=== PATIENT | male | born 1980 | race Caucasian/White ===

== ENCOUNTER 2020-04-22 21:29 | Emergency (ER) | payer OTHER ==
[~2020-04-22] VITALS: Ht 175.3 cm; Wt 79.4 kg
[~2020-04-22 21:29] MED LIST: ASCORBIC ACID250 MG PO; COZAAR50 MG PO; FERROUS GLUCON325 M1 PO; FOLIC ACID1 MG PO; GLIPIZIDE XL5 MG PO; HYDROCHLOROTHIA25 MG PO; METFORMIN HCL500 MG PO; RANITIDINE HCL150 MG PO; SIMVASTATIN20 MG PO; TERAZOSIN HCL2 MG PO; WARFARIN SODIUM5 MG PO
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
[2020-04-22] MEDS ORDERED: XANAX XR1 MG PO (21:38)
[2020-04-22] MEDS ORDERED: PROZAC40 MG PO (21:38)
== END 2020-04-22 23:02 | disposition home or self-care (01) ==
LOC: ED 21:29
DX: S20.211A Contusion of right front wall of thorax, initial encounter (principal); F41.9 Anxiety disorder, unspecified; F17.200 Nicotine dependence, unspecified, uncomplicated; Z79.899 Other long term (current) drug therapy; V47.5XXA Car driver injured in collision with fixed or stationary object in traffic accident, initial encounter
CPT/HCPCS: 71100; 99283-25

== ENCOUNTER 2020-11-21 18:18 | Emergency (ER) | payer OTHER ==
[~2020-11-21] VITALS: Ht 175.3 cm; Wt 79.4 kg
[~2020-11-21 18:18] MED LIST changes: +PROZAC40 MG PO; +XANAX XR1 MG PO
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
[2020-11-21] MEDS ORDERED: XANAX0.5 MG PO (20:32)
== END 2020-11-21 20:57 | disposition home or self-care (01) ==
LOC: ED 18:18
DX: F19.239 Other psychoactive substance dependence with withdrawal, unspecified (principal); F17.200 Nicotine dependence, unspecified, uncomplicated; Z79.899 Other long term (current) drug therapy
CPT/HCPCS: 99283

== ENCOUNTER 2023-12-10 09:22 | Emergency (ER) | payer OTHER ==
[~2023-12-10] VITALS: Ht 175.3 cm; Wt 68.7 kg
[~2023-12-10 09:22] MED LIST changes: +OMEPRAZOLE20 MG PO; +XANAX0.5 MG PO
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
[2023-12-10] MEDS ORDERED: ondansetron HCL 4 MG/2 ML VIAL IV ONE (11:00)
[2023-12-10] MEDS ORDERED: SODIUM CHLORIDE 0.9% 1,000 ML IV PRN ×2 (11:00→11:45)
[2023-12-10 11:03] LABS: BASOPHILS 1.5 % (0-2); EOSINOPHILS 0.3 % (0-6); HEMATOCRIT 46.5 % (35.0-50.0); HEMOGLOBIN 15.8 g/dL (12.0-18.0); LYMPHOCYTES 22.9 % (24-44); MCH 31.4 (27-36); MCV 92.3 fl (81-99); MONOCYTES 8.7 % (0-12); NEUTROPHILS 66.6 % (39-80); PLATELET COUNT 202 K/uL (140-440); RBC 5.04 M/ul (4.3-5.7); RDW 13.4 (10.5-15.0)
[2023-12-10 11:17] LABS: ALBUMIN 3.8 g/dL (3.4-5.0); ALBUMIN/GLOBULIN RATIO 0.95 (1.1-2.4); ANION GAP 15.2 (7-21); BILIRUBIN, TOTAL 0.2 ng/dL (0.2-1.0); CALCIUM 9.2 mg/dL (8.5-10.1); CREATININE, SERUM 0.8 mg/dL (0.70-1.30); MAGNESIUM 1.9 mg/dL (1.8-2.4); POTASSIUM 4.2 mmol/L (3.5-5.1); PROTEIN, TOTAL 7.8 g/dL (6.4-8.2)
[2023-12-10 11:18] LABS: ALCOHOL, MEDICAL 222 ng/dL (<3)
[2023-12-10] MEDS ORDERED: droPERidol 5 MG/2 ML VIAL IV ONE (11:45)
[2023-12-10 12:11] LABS: BILIRUBIN, URINE NEGATIVE (negative); BLOOD/HGB, URINE SMALL (Negative); KETONE, URINE NEGATIVE (Negative); LEUK ESTERASE, URINE NEGATIVE (negative); NITRITE, URINE NEGATIVE (negative)
[2023-12-10 12:26] LABS: EPITHELIAL CELLS, URINE 0 /lpf (0-1+); WHITE BLOOD CELLS, URINE 0-1 /HPF (0-5)
[2023-12-10 12:29] LABS: REFLEX CULTURE, URINE No (No)
[2023-12-10] MEDS ORDERED: CHLORDIAZEPOXID25 MG PO (13:36)
[2023-12-10] MEDS ORDERED: CHLORDIAZEPOXIDE 25 MG CAP PO ONE (13:45)
== END 2023-12-10 13:50 | disposition home or self-care (01) ==
LOC: ED 09:22
PROVIDERS: Emergency Medicine
DX: K29.20 Alcoholic gastritis without bleeding (principal); F10.239 Alcohol dependence with withdrawal, unspecified; F41.9 Anxiety disorder, unspecified; F17.200 Nicotine dependence, unspecified, uncomplicated; Y90.7 Blood alcohol level of 200-239 mg/100 ml; Z79.899 Other long term (current) drug therapy
CPT/HCPCS: 36415; 80053; 81001; 83690; 83735; 85025; 96361; 96374; 96375; 99284-25; G0480; J1790; J2405; J7030

== ENCOUNTER 2024-04-19 20:21 | Emergency (ER) | payer OTHER ==
[~2024-04-19] VITALS: Ht 175.3 cm; Wt 75.0 kg
--- OUTSIDE RECORDS SUMMARY | ~2024-04-19 | XMS | Continuity of Care Document ---
Demographics + + + | Address | [address] | | | [place] [address] | + + + | Preferred Language | Unknown | + + + | Marital Status | Unknown | + + + | Zoroastrian Affiliation | Unknown | + + + | Race | White | + + + | Ethnic Group | or | + + + Author + + + | Author | [facility] | + + + | Organization | [facility] | + + + | Address | [address] | | | [place] [address] | + + + | Phone | | + + + Care Team Providers + + + + | Care Cylinder Dyer Name | Role | Phone | + + + + Unavailable | Unavailable | + + + + Allergies No information. Encounters No information. Functional Status No information. Immunizations No information. Medications No information. 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) | [facility] | | | drug therapy | | + + + + | 2024-03-11 14:20:28 | Anxiety disorder, | [facility] | | | unspecified | | + + + + | 2024-03-12 11:35:32 | Anxiety disorder, | [facility] | | | unspecified | | + + + + | 2024-03-13 11:18:55 | Generalized anxiety | [facility] | | | disorder | | + + + + | 2024-03-13 11:18:55 | Contusion of unspecified | [facility] | | | part of head, initial | | | | encounter | | + + + + | 2024-03-16 08:33:08 | Panic Attack | [facility] | + + + + | 2024-03-16 09:44:15 | Anxiety disorder, | [facility] | | | unspecified | | + + + + | 2024-03-16 10:22:41 | Anxiety disorder, | [facility] | | | unspecified | | + + + + | 2024-03-30 11:38:40 | Weakness - Generalized | [facility] | + + + + | 2024-03-30 11:46:52 | Generalized anxiety | [facility] | | | disorder | | + + + + Procedures No information. Results/Labs No information. Social History +--------+ + + | date | description | facility | +--------+ + + Vital Signs No information."
[~2024-04-19 20:21] MED LIST changes: +CHLORDIAZEPOXID25 MG PO; +CLONIDINE HCL0.2 MG PO; +GABAPENTIN300 MG PO; +HYDROXYZINE HCL25 MG PO; +XANAX1 MG PO
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
[2024-04-19] MEDS ORDERED: FLUOXETINE HCL20 MG PO (20:32)
[2024-04-19] MEDS ORDERED: QUETIAPINE FUMARATE 100 MG TAB PO ONE (20:45)
[2024-04-19 20:49] LABS: BASOPHILS 1.3 % (0-2); EOSINOPHILS 0.4 % (0-6); HEMATOCRIT 40.9 % (35.0-50.0); LYMPHOCYTES 31.2 % (24-44); MCH 31.1 (27-36); MCHC 34.2 g/dl (30-36); MCV 91.1 fl (81-99); MONOCYTES 9.5 % (0-12); NEUTROPHILS 57.6 % (39-80); PLATELET COUNT 252 K/uL (140-440); RBC 4.49 M/ul (4.3-5.7); RDW 15.1 (10.5-15.0)
[2024-04-19 20:56] LABS: BILIRUBIN, URINE NEGATIVE (negative); BLOOD/HGB, URINE TRACE-I (Negative); KETONE, URINE NEGATIVE (Negative); LEUK ESTERASE, URINE NEGATIVE (negative); NITRITE, URINE NEGATIVE (negative); PH, URINE 6.5 (5-7)
[2024-04-19 21:01] LABS: ALBUMIN 3.9 g/dL (3.4-5.0); ALBUMIN/GLOBULIN RATIO 1.03 (1.1-2.4); ANION GAP 15.8 (7-21); BILIRUBIN, TOTAL 0.2 ng/dL (0.2-1.0); BUN/CREATININE RATIO 16.32 (6.0-28.6); CALCIUM 8.5 mg/dL (8.5-10.1); CREATININE, SERUM 0.98 mg/dL (0.70-1.30); POTASSIUM 3.8 mmol/L (3.5-5.1); PROTEIN, TOTAL 7.7 g/dL (6.4-8.2)
[2024-04-19 21:01] LABS: EPITHELIAL CELLS, URINE SQUAMOUS 1+ /lpf (0-1+)
[2024-04-19 21:02] LABS: BACTERIA, URINE RARE /hpf (negative); CASTS, URINE NONE SEEN \\lpf; CRYSTALS, URINE NONE SEEN (0-1+); REFLEX CULTURE, URINE No (No); WHITE BLOOD CELLS, URINE 0-1 /HPF (0-5)
[2024-04-19 21:12] LABS: AMPHETAMINES, URINE NEGATIVE (NEGATIVE); BARBITURATES, URINE NEGATIVE (NEGATIVE); BENZODIAZEPINE, URINE NEGATIVE (NEGATIVE); BUPRENORPHINE, URINE NEGATIVE (NEGATIVE); CANNABINOID, URINE NEGATIVE (NEGATIVE); COCAINE, URINE NEGATIVE (NEGATIVE); ECSTASY, URINE NEGATIVE (NEGATIVE); FENTANYL, URINE NEGATIVE (NEGATIVE); METHADONE, URINE NEGATIVE (NEGATIVE); OPIATES, URINE NEGATIVE (NEGATIVE); OXYCODONE, URINE NEGATIVE (NEGATIVE); PHENCYCLIDINE, URINE NEGATIVE (NEGATIVE)
[2024-04-19] MEDS ORDERED: SEROQUEL50 MG PO (21:45)
[2024-04-19 21:54] VITALS: BP 138/96
[2024-04-20] MEDS ORDERED: OMEPRAZOLE20 MG PO (04:01)
[2024-04-20] MEDS ORDERED: CARAFATE1 GM PO (04:40)
--- NOTE | 2024-04-20 12:34 | EKG ---
[facility] [address] [facility] [place] [address] Signed Normal sinus rhythm Normal ECG When compared with ECG of 27-OCT-2023 21:16, Vent. rate has decreased BY [address] no longer depressed in Anterior leads Nonspecific T wave abnormality no longer evident in Lateral leads Confirmed by BELEM LUCAS MD ([id number]) on 04/20/2024 12:33:49 PM Electronically Signed By: BELEM LUCAS 04/20/24 1234 PATIENT NAME: DELICIA CADET ELIAN Electrocardiogram DATE OF : 78 PHYSICIAN: BELEM LUCAS REPORT #: [id number] REPORT IS CONFIDENTIAL AND NOT TO BE RELEASED WITHOUT AUTHORIZATION
== END 2024-04-19 21:54 | disposition home or self-care (01) ==
LOC: ED 20:21
PROVIDERS: Internal Medicine
DX: F41.0 Panic disorder [episodic paroxysmal anxiety] (principal); F10.90 Alcohol use, unspecified, uncomplicated; F17.200 Nicotine dependence, unspecified, uncomplicated; Y90.6 Blood alcohol level of 120-199 mg/100 ml
CPT/HCPCS: 36415; 80053; 80307; 81001; 83735; 84484; 85025; 93005; 93010; A9270; G0480

== ENCOUNTER 2024-04-20 02:55 | Emergency (ER) | payer OTHER ==
[~2024-04-20] VITALS: Ht 177.8 cm; Wt 75.0 kg
--- OUTSIDE RECORDS SUMMARY | ~2024-04-20 | XMS | Continuity of Care Document ---
Demographics + + + | Address | [address] | | | [place] [address] | + + + | Preferred Language | Unknown | + + + | Marital Status | Unknown | + + + | Hindu Affiliation | Unknown | + + + | Race | White | + + + | Ethnic Group | or | + + + Author + + + | Author | [facility] | + + + | Organization | [facility] | + + + | Address | [address] | | | [place] [address] | + + + | Phone | | + + + Care Team Providers + + + + | Care Cinder Crew Worker Name | Role | Phone | + + + + Unavailable | Unavailable | + + + + Allergies No information. Encounters No information. Functional Status No information. Immunizations No information. Medications No information. Problems + + + + | date | description | facility | + + + + | 2024-03-02 21:28:03 | Other long term care administrator (current) | [facility] | | | drug [...]
[~2024-04-20 02:55] MED LIST changes: +FLUOXETINE HCL20 MG PO; +SEROQUEL50 MG PO
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
[2024-04-20] MEDS ORDERED: LIDOCAINE & ANTACID 35 ML BTL PO ONE (03:15)
[2024-04-20] MEDS ORDERED: FAMOTIDINE 20 MG/ 2 ML VIAL IV ONE (03:15)
[2024-04-20] MEDS ORDERED: ACETAMINOPHEN 500 MG TAB PO ONE (03:15)
[2024-04-20 03:23] LABS: BASOPHILS 0.8 % (0-2); EOSINOPHILS 0.5 % (0-6); HEMATOCRIT 39.4 % (35.0-50.0); HEMOGLOBIN 13.5 g/dL (12.0-18.0); LYMPHOCYTES 19.7 % (24-44); MCH 31.2 (27-36); MCHC 34.2 g/dl (30-36); MCV 91.2 fl (81-99); MONOCYTES 8.2 % (0-12); NEUTROPHILS 70.8 % (39-80); PLATELET COUNT 220 K/uL (140-440); RBC 4.32 M/ul (4.3-5.7); RDW 14.7 (10.5-15.0)
[2024-04-20 03:44] LABS: ALBUMIN 3.8 g/dL (3.4-5.0); ALBUMIN/GLOBULIN RATIO 1.06 (1.1-2.4); ALCOHOL, MEDICAL <3 ng/dL (<3); ALKALINE PHOSPHATASE 88 U/L (46-116); ALT (SGPT) 34 U/L (14-59); ANION GAP 14.4 (7-21); AST (SGOT) 25 U/L (15-37); BILIRUBIN, TOTAL 0.4 ng/dL (0.2-1.0); BUN/CREATININE RATIO 21.34 (6.0-28.6); CALCIUM 8.7 mg/dL (8.5-10.1); CARBON DIOXIDE 26 mmol/L (21-32); CHLORIDE 97 mmol/L (98-107); CREATININE, SERUM 0.89 mg/dL (0.70-1.30); GLOMERULAR FILTRATION RATE,EST 108 mL/min (>60); MAGNESIUM 1.7 mg/dL (1.8-2.4); POTASSIUM 3.4 mmol/L (3.5-5.1); PROTEIN, TOTAL 7.4 g/dL (6.4-8.2); UREA NITROGEN 19 mg/dL (7-18)
[2024-04-20] MEDS ORDERED: OMEPRAZOLE20 MG PO (04:01)
[2024-04-20] MEDS ORDERED: CARAFATE1 GM PO (04:40)
[2024-04-20] MEDS ORDERED: QUETIAPINE FUMARATE 25 MG TAB PO ONE (05:30)
[2024-04-20 06:11] VITALS: BP 157/80
--- NOTE | 2024-04-20 12:34 | EKG ---
[facility] [address] [facility] [place], [place] [address] Signed Normal sinus rhythm Normal ECG When compared with ECG of 19-APR-2024 20:22, (Unconfirmed) No significant change was found Confirmed by BELEM LUCAS MD ([id number]) on 04/20/2024 12:33:57 PM Electronically Signed By: BELEM LUCAS 04/20/24 1234 PATIENT NAME: DELICIA CADET ELIAN Electrocardiogram DATE OF : 78 PHYSICIAN: BELEM LUCAS REPORT #: [id number] REPORT IS CONFIDENTIAL AND NOT TO BE RELEASED WITHOUT AUTHORIZATION
== END 2024-04-20 06:45 | disposition home or self-care (01) ==
LOC: ED 02:55
PROVIDERS: Internal Medicine
DX: F41.0 Panic disorder [episodic paroxysmal anxiety] (principal); K21.9 Gastro-esophageal reflux disease without esophagitis; F17.200 Nicotine dependence, unspecified, uncomplicated; Z79.899 Other long term (current) drug therapy
CPT/HCPCS: 36415; 71045; 80053; 83690; 83735; 84484; 85025; 85379; 93005; 93010; A9270; G0480

== ENCOUNTER 2024-04-20 09:43 | Emergency (ER) | payer OTHER ==
[~2024-04-20] VITALS: Ht 177.8 cm; Wt 86.4 kg
--- OUTSIDE RECORDS SUMMARY | ~2024-04-20 | XMS | Continuity of Care Document ---
Demographics + + + | Address | [address] | | | [place] [address] | + + + | Preferred Language | Unknown | + + + | Marital Status | Unknown | + + + | Restorationism Affiliation | Unknown | + + + | Race | White | + + + | Ethnic Group | or | + + + Author + + + | Author | [facility] | + + + | Organization | [facility] | + + + | Address | [address] | | | [place] [address] | + + + | Phone | | + + + Care Team Providers + + + + | Care Multi Purpose Machine Operator Name | Role | Phone | + + + + Unavailable | Unavailable | + + + + Allergies No information. Encounters No information. Functional Status No information. Immunizations No information. Medications No information. 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
[~2024-04-20 09:43] MED LIST changes: +CARAFATE1 GM PO
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
[2024-04-20 10:09] LABS: EOSINOPHILS 0.1 % (0-6); HEMATOCRIT 40.1 % (35.0-50.0); HEMOGLOBIN 13.6 g/dL (12.0-18.0); LYMPHOCYTES 10.6 % (24-44); MCH 31.2 (27-36); MCV 91.9 fl (81-99); MONOCYTES 8.3 % (0-12); PLATELET COUNT 224 K/uL (140-440); RBC 4.36 M/ul (4.3-5.7); RDW 14.8 (10.5-15.0)
[2024-04-20 10:23] LABS: ALBUMIN 3.8 g/dL (3.4-5.0); ALBUMIN/GLOBULIN RATIO 1.03 (1.1-2.4); ANION GAP 20.8 (7-21); BILIRUBIN, TOTAL 0.4 ng/dL (0.2-1.0); BUN/CREATININE RATIO 15.65 (6.0-28.6); CALCIUM 8.4 mg/dL (8.5-10.1); CREATININE, SERUM 1.15 mg/dL (0.70-1.30); POTASSIUM 3.8 mmol/L (3.5-5.1); PROTEIN, TOTAL 7.5 g/dL (6.4-8.2); TSH, 3RD GENERATION 1.882 uIU/mL (0.358-3.740)
[2024-04-20] MEDS ORDERED: ACETAMINOPHEN 500 MG TAB PO ONE (11:30)
[2024-04-20] MEDS ORDERED: PHENOBARBITAL SOD 130 MG/ML VIAL IM ONE (12:45)
[2024-04-20 13:00] LABS: AMPHETAMINES, URINE NEGATIVE (NEGATIVE); BARBITURATES, URINE NEGATIVE (NEGATIVE); BENZODIAZEPINE, URINE NEGATIVE (NEGATIVE); BUPRENORPHINE, URINE NEGATIVE (NEGATIVE); CANNABINOID, URINE POSITIVE (NEGATIVE); COCAINE, URINE NEGATIVE (NEGATIVE); ECSTASY, URINE NEGATIVE (NEGATIVE); FENTANYL, URINE NEGATIVE (NEGATIVE); METHADONE, URINE NEGATIVE (NEGATIVE); OPIATES, URINE NEGATIVE (NEGATIVE); OXYCODONE, URINE NEGATIVE (NEGATIVE); PHENCYCLIDINE, URINE NEGATIVE (NEGATIVE)
[2024-04-20] MEDS ORDERED: PHENOBARBITAL SOD 130 MG/ML VIAL IV ONE (13:00)
[2024-04-20 13:23] VITALS: BP 138/91
--- NOTE | 2024-04-21 16:08 | EKG ---
[facility] [address] [place], [place] [address] Signed Sinus tachycardia Otherwise normal ECG When compared with ECG of 20-APR-2024 02:54, (Unconfirmed) No significant change was found Confirmed by Greg Vides ([id number]) on 04/21/2024 4:08:39 PM Electronically Signed By: GREG VIDES MD 04/21/24 1608 PATIENT NAME: DELICIA CADET ELIAN Electrocardiogram DATE OF : 78 PHYSICIAN: GREG VIDES MD REPORT #: [id number] REPORT IS CONFIDENTIAL AND NOT TO BE RELEASED WITHOUT AUTHORIZATION
== END 2024-04-20 13:23 | disposition home or self-care (01) ==
LOC: ED 09:43
PROVIDERS: Emergency Medicine
DX: R56.9 Unspecified convulsions (principal); F17.200 Nicotine dependence, unspecified, uncomplicated; Z79.899 Other long term (current) drug therapy
CPT/HCPCS: 36415; 70450; 80053; 80307; 84443; 85025; 93005; 93010; 96374; 99284-25; A9270; G0480; J2560

== ENCOUNTER 2025-07-30 16:05 | Emergency (ER) | payer OTHER ==
[~2025-07-30] VITALS: Ht 177.8 cm; Wt 80.0 kg
--- OUTSIDE RECORDS SUMMARY | 2025-07-30 16:12 | XMS ---
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 FAMILY PHONE: [phone] Katie has no Care Guidelines for this patient. Leyda VISIT COUNT (12 MO.) 1 NELLIE Hahn TOTAL 1 NOTE: Visits indicate total known visits. ED/UCC VISIT TRACKING (12 MO.) 07/30/2025 16:06 NELLIE Huang OR TYPE: Emergency COMPLAINT: - FALL, INJURED KNEE INPATIENT VISIT TRACKING (12 MO.) No inpatient visits to display in this time frame [id number]
[2025-07-30] MEDS ORDERED: PAROXETINE HCL20 MG PO (16:22)
[2025-07-30] MEDS ORDERED: BUSPIRONE HCL15 MG PO (16:23)
[2025-07-30] MEDS ORDERED: TRAZODONE HCL100 MG PO (16:23)
[2025-07-30 17:12] VITALS: BP 00/00
== END 2025-07-30 17:12 | disposition left against medical advice (07) ==
LOC: ED 16:05
DX: S80.211A Abrasion, right knee, initial encounter (principal); W10.2XXA Fall (on)(from) incline, initial encounter; Y92.828 Other wilderness area as the place of occurrence of the external cause; Z53.29 Procedure and treatment not carried out because of patient's decision for other reasons
CPT/HCPCS: 73560

== ENCOUNTER 2025-07-31 12:10 | Emergency (ER) | payer OTHER ==
[~2025-07-31] VITALS: Ht 177.8 cm; Wt 80.0 kg
[~2025-07-31 12:10] MED LIST changes: +BUSPIRONE HCL15 MG PO; +PAROXETINE HCL20 MG PO; +TRAZODONE HCL100 MG PO
--- OUTSIDE RECORDS SUMMARY | 2025-07-31 12:17 | XMS ---
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 Leyda VISIT COUNT (12 MO.) 2 NELLIE Hahn TOTAL 2 NOTE: Visits indicate total known visits. ED/UCC VISIT TRACKING (12 MO.) 07/31/2025 12:10 NELLIE Huang OR TYPE: Emergency COMPLAINT: - KNEE PAIN 07/30/2025 16:06 NELLIE Huang OR TYPE: Emergency COMPLAINT: - FALL, INJURED KNEE INPATIENT VISIT TRACKING (12 MO.) No inpatient visits to display in this time frame [id number]
[2025-07-31 14:29] VITALS: BP 127/90
== END 2025-07-31 14:32 | disposition home or self-care (01) ==
LOC: ED 12:10
DX: S82.141A Displaced bicondylar fracture of right tibia, initial encounter for closed fracture (principal); S82.111A Displaced fracture of right tibial spine, initial encounter for closed fracture; S83.511A Sprain of anterior cruciate ligament of right knee, initial encounter; F17.200 Nicotine dependence, unspecified, uncomplicated; Z79.899 Other long term (current) drug therapy; W01.0XXA Fall on same level from slipping, tripping and stumbling without subsequent striking against object, initial encounter; Y93.01 Activity, walking, marching and hiking
CPT/HCPCS: 73700; 99283-25